=== PATIENT | female | born 1965 | race Caucasian/White ===

== ENCOUNTER → 2016-11-17 | Outpatient (CLI) | payer OTHER | END | disposition home or self-care (01) | LOC: CFH 07:15 | PROVIDERS: ATTEND Family Medicine | DX: Z12.31 Encounter for screening mammogram for malignant neoplasm of breast (principal) | CPT/HCPCS: G0202 ==

== ENCOUNTER → 2018-07-19 | Outpatient (CLI) | payer OTHER | END | disposition home or self-care (01) | LOC: CFH 08:31 | PROVIDERS: ATTEND Physical Medicine & Rehabilitation | DX: M48.07 Spinal stenosis, lumbosacral region (principal); M47.817 Spondylosis without myelopathy or radiculopathy, lumbosacral region; M24.9 Joint derangement, unspecified; M89.38 Hypertrophy of bone, other site; N73.8 Other specified female pelvic inflammatory diseases | CPT/HCPCS: 72110; 72170 ==

== ENCOUNTER → 2020-04-26 | Outpatient (CLI) | payer OTHER | END | disposition home or self-care (01) | LOC: CFH 07:45 | PROVIDERS: ATTEND Family Medicine | DX: M25.752 Osteophyte, left hip (principal); M25.751 Osteophyte, right hip; G89.29 Other chronic pain | CPT/HCPCS: 73523 ==

== ENCOUNTER 2020-11-08 05:50 | Emergency (ER) | payer OTHER ==
[~2020-11-08] VITALS: Ht 162.6 cm; Wt 155.0 kg
[2020-11-08] MEDS ORDERED: PLEASE ENTER ALLERGIES MC SCH (06:30)
[2020-11-08] MEDS ORDERED: MECLIZINE CHEWABLE 25 MG TAB PO ONE (06:30)
[2020-11-08] MEDS ORDERED: ONDANSETRON ODT 4 MG ONE (06:30)
[2020-11-08] MEDS ORDERED: MECLIZINE CHEWABLE 25 MG TAB ONE (06:30)
[2020-11-08] MEDS ORDERED: ONDANSETRON ODT 4 MG PO ONE (06:30)
--- NOTE | 2020-11-08 06:45 | NUR ---
REPORT GIVEN TO KAYLA OVALLES
--- NOTE | 2020-11-08 07:28 | NUR ---
LATE ENTRY FOR 0645, SBAR RPT REC'D AND ASSUMED PT CARE. [facility] RE[facility]
--- NOTE | 2020-11-08 07:28 | NUR ---
PT CONTINUES WITH NAUSEA BUT SAYS THAT IT IS "A LITTLE BETTER" NO IMPROVEMENT IN DIZZINESS.
--- NOTE | 2020-11-08 07:31 | NUR ---
DR ALVA AT BEDSIDE. PT WITH NO IMPROVEMENT, ADDITIONAL TESTING DISCUSSED AND QUESTIONS ANSWERED.
--- NOTE | 2020-11-08 07:39 | NUR ---
PT REQUESTS TO GO TO BATHROOM. VERBALIZES THAT SHE IS TOO DIZZY TO WALK WITH ASSISTANCE. BSC TO ROOM BUT PT REFUSES TO USE COMMODE. WHEELCHAIR TO ROOM, PT OOB AND TRANSFERED TO WHEELCHAIR INDEPENDENTLY W/O DIFFICULTY. WHEELED TO BATHROOM AND INSTRUCTED ON CLEAN CATCH URINE SAMPLE COLLECTION.
[2020-11-08] MEDS ORDERED: DIAZEPAM 5 MG TABLET ONE (07:49)
--- NOTE | 2020-11-08 07:53 | NUR ---
PT MED NOTED. PT VERBALIZES NAUSEA IS RESSOLVED
[2020-11-08 07:58] LABS: MICROSCOPIC INDICATED
[2020-11-08] MEDS ORDERED: DIAZEPAM 5 MG TABLET PO ONE (08:00)
[2020-11-08 08:19] LABS: BASOPHILS % (AUTO) 1 % (0-1); EOSINOPHILS % (AUTO) 0 % (1-7); LYMPHOCYTES % (AUTO) 12 % (22-44); MEAN CORPUSCULAR HEMOGLOBIN 26.3 pg (27.0-34.8); MEAN CORPUSCULAR HGB CONC 32.4 g/dL (32.4-35.8); MEAN PLATELET VOLUME 9.6 fL (7.4-10.4); MONOCYTES % (AUTO) 3 % (2-9); NEUTROPHILS % (AUTO) 85 % (42-75); PLATELET COUNT 231 x10^3/uL (130-400); RED BLOOD COUNT 5.35 x10^6/uL (3.82-5.3); RED CELL DISTRIBUTION WIDTH 16.3 % (9.6-15.2)
[2020-11-08 08:27] LABS: ALBUMIN 3.1 g/dL (3.4-5.0); ANION GAP 6 mmol/L (5-15); CALCIUM 9.2 mg/dL (8.5-10.1); CHLORIDE 109 mmol/L (98-107); CREATININE 0.87 mg/dL (0.55-1.02)
--- NOTE | 2020-11-08 08:28 | NUR ---
PT OOB AND STAND AT BEDSIDE, RPTS DIZZINESS IS MUCH IMPROVED. CHART UP FOR RECHECK
[2020-11-08 09:11] VITALS: BP 171/99
--- NOTE | 2020-11-08 09:12 | NUR ---
Patient/Caregiver given discharge instructions and they have confirmed that they understand the instructions. Patient ambulatory with steady gait. NAD, all questions answered appropriately, denies additional needs at this time. No personal belongings left in room after discharge.
== END 2020-11-08 09:13 | disposition home or self-care (01) ==
LOC: ED 07:22
DX: H81.10 Benign paroxysmal vertigo, unspecified ear (principal); H81.399 Other peripheral vertigo, unspecified ear; R11.0 Nausea; R51.9 Headache, unspecified
CPT/HCPCS: 36415; 80048; 81001; 82040; 85025; 87086; 93005; 99284; Q0162